=== PATIENT | female | born 1980 | race Caucasian/White ===

== ENCOUNTER 2016-05-25 13:25 | Emergency (ER) | payer SELFPAY ==
[~2016-05-25] VITALS: Ht 167.6 cm; Wt 97.0 kg
[~2016-05-25 13:25] MED LIST: IBUP800T23 PO; TRAM50 PO
[2016-05-25 13:38] VITALS: BP 135/81; PULSE 88; RESP 16; TEMP 97.9; O2SAT 100
[2016-05-25] MEDS ORDERED: AZIT250T3 PO (14:04)
[2016-05-25] MEDS ORDERED: PRED20 PO (14:04)
[2016-05-25] MEDS ORDERED: ALBUAER3 INH (14:04)
--- NOTE | 2016-05-25 14:04 | PD ---
HPI Chief Complaint: Cold / Flu Symptoms Time Seen by Provider: 14:04 Travel History International Travel<30 days: No Contact w/Intl Traveler<30days: No Traveled to known affect area: No History of Present Illness HPI Patient is a 35-year-old female history of asthma presenting with cough for 1 week. She's had wheezing and dyspnea as well. Brown sputum production. Symptoms are worse over the last 2 days. She has chest tightness and pain with coughing. Denies resting chest pain or pain with deep breathing. Dyspnea is minimal. She denies any ENT/URI symptoms. She has used a friend's nebulizer which has seemed to help. She denies fever. She is a current tobacco smoker. Denies current . [facility] Past Medical History Diminished Hearing: No Tetanus Vaccination: Unknown ?: Not LMP: 05/17/2016 Social History Alcohol Use: Yes (SOCIAL) Tobacco Use: Yes (SOCIAL) Substance Use: No Allergies-Medications (Allergen,Severity, Reaction): Coded Allergies: No Known Allergies (Unverified , 05/25/16) Reported Meds & Prescriptions Reported Meds & Active Scripts Active Azithromycin 250 Mg Tab 250 Mg PO DIRECTED Take 2 tabs (500 mg) on day 1 then 1 tab daily x 4 days. Proair Hfa 8.5 GM Inh (Albuterol Sulfate) 90 Mcg/Act Aer 2 Puff INH Q4-6H PRN 108 mcg/actuation Prednisone 20 Mg Tab 20 Mg PO DAILY 5 Days Review of Systems Except as stated in HPI: all other systems reviewed are Neg Physical Exam Narrative GENERAL: Well-developed and well-nourished adult female in no acute distress. SKIN: Warm and dry. Good turgor without tenting. HEAD: Normocephalic and atraumatic. EYES: PERRL bilaterally, 5mm. EOMI bilaterally. No injection or icterus present. No proptosis. Lids without edema or erythema. ENT: Bilateral ear canals are non-edematous/non-erythematous without otorrhea. Bilateral TMs have intact landmarks and without distortion, perforation, air- fluid level or erythema. Nasal mucosa pink and moist without discharge, septum intact and midline. Buccal mucosa pink and moist. Oropharynx free of erythema, tonsillar hypertrophy, masses, swelling, asymmetry and exudates. Uvula midline and airway patent. NECK: Supple, no meningeal signs. Trachea midline, no JVD. No cervical or facial lymphadenopathy. CARDIOVASCULAR: Regular rate and rhythm without murmurs, rubs, clicks or gallops. Radial and posterior tibial pulses 2+ bilaterally. No pedal edema. RESPIRATORY: Clear to auscultation bilaterally with symmetrical rise and fall, no distress or use of accessory muscles. GASTROINTESTINAL: Non-tender, non-distended. Normal bowel sounds all 4 quadrants. No masses or organomegaly present. MUSCULOSKELETAL: No gait disturbances. Patient freely moving all four extremities spontaneously. Extremities without clubbing, cyanosis, or edema. No obvious deformities. NEUROLOGIC: CN II-XII grossly intact. Awake and alert. Motor grossly within normal limits. Normal speech. PSYCHIATRIC: Appropriate mood and affect; insight and judgment normal. Data Data Last Documented VS Vital Signs Date Time Temp Pulse Resp B/P Pulse Ox O2 Delivery O2 Flow Rate FiO2 05/25/16 13:38 97.9 88 16 135/81 100 MDM Medical Decision Making Medical Screen Exam Complete: Yes Emergency Medical Condition: Yes Differential Diagnosis Acute bronchitis versus asthma exacerbation versus pneumonia Narrative Course Patient's 35-year-old female history and physical suggestive of bronchitis with asthma exacerbation. She is afebrile and nontoxic-appearing. work of breathing. Lungs clear to auscultation however she did a home albuterol treatment just prior to coming in. As symptoms have been present over 1 week and her worsening we'll prescribe azithromycin. Patient was given pro-air inhaler and recommend she stop using her friend's nebulizer machine. Also given prescription for prednisone. Recommend stop smoking.See discharge paperwork for further instructions. The plan was discussed with the patient who acknowledged their understanding and agreement. Reinforced the follow-up with primary care is critically important. Patient instructed on emergent conditions that should prompt return to ED. Diagnosis Primary Impression: Acute bronchitis Qualified Code: J20.9 - Acute bronchitis, unspecified organism Patient Instructions: Acute Bronchitis (ED), Cigarette Smoking and Your Health (GEN), General Instructions Departure Forms: Tests/Procedures, Work Release Enter return to work date: May 27, 2016 Additional Instructions: Take medication as prescribed OTC Mucinex, cough suppressants, and decongestants as needed OTC Tylenol or Ibuprofen for fever and discomfort Drink lots of fluid to help clear mucous/drainage and stay hydrated Recommend stop smoking as this will contribute to poor lung and heart health Follow up with PCP in 2 days Return to the ED for any acute worsening of symptoms Med/Other Pt SpecificInfo: Prescription(s) given Scripts Azithromycin 250 Mg [id number] Mg PO DIRECTED #6 TAB Take 2 tabs (500 mg) on day 1 then 1 tab daily x 4 days. Prov:Karen Peter MD 05/25/16 Albuterol 8.5 GM Inh (Proair Hfa 8.5 GM Inh)90 Mcg/Act Aer2 Puff INH Q4-6H PRN ( SHORTNESS OF BREATH) #1 INHALER 108 mcg/actuation Prov:Karen Peter MD 05/25/16 Prednisone 20 Mg Tab20 Mg PO DAILY 5 Days Prov:Karen Peter MD 05/25/16 Disposition: 01 DISCHARGE HOME Condition: Stable Diego Anand III May 25, 2016 14:04
== END 2016-05-25 14:43 | disposition home or self-care (01) ==
LOC: PHEFT 13:25
DX: J20.9 Acute bronchitis, unspecified (principal); R09.3 Abnormal sputum; Z72.0 Tobacco use
CPT/HCPCS: 99283

== ENCOUNTER 2017-09-03 12:47 | Inpatient (IN) | payer OTHER ==
[~2017-09-03] VITALS: Ht 167.6 cm; Wt 99.7 kg
[~2017-09-03 12:47] MED LIST changes: +ALBUAER3 INH; +AZIT250T3 PO; -IBUP800T23 PO; +PRED20 PO; -TRAM50 PO
[2017-09-03 12:55] VITALS: BP 141/75; PULSE 67; RESP 16; TEMP 97.3; O2SAT 100
--- NOTE | 2017-09-03 13:10 | PD ---
HPI Chief Complaint: GI Complaint Time Seen by Provider: 13:00 Travel History International Travel<30 days: No Contact w/Intl Traveler<30days: No Traveled to known affect area: No History of Present Illness HPI This 36-year-old female says he been sick for the past 3 weeks. Since she has been nauseated at times she has been coughing a lot. She does have a history of asthma. She says since last night she has been unable to hold any food down. She says she is not . She denies any alcohol or history of liver disease. PFS Past Medical History Asthma: Yes Diminished Hearing: No Tetanus Vaccination: < 5 Years Influenza Vaccination: Yes ?: Not LMP: 08/23/17 Past Surgical History Surgical History: No Previous Surgery Social History Alcohol Use: Yes (Occ.) Tobacco Use: No Substance Use: No Allergies-Medications (Allergen,Severity, Reaction): Coded Allergies: No Known Allergies (Unverified Allergy, Unknown, 09/03/17) Reported Meds & Prescriptions Reported Meds & Active Scripts Active Review of Systems General / Constitutional: No: Fever, Chills Eyes: No: Diploplia, Blurred Vision HENT: No: Headaches, Vertigo Cardiovascular: Positive: Chest Pain or Discomfort Respiratory: No: Cough, Shortness of Breath Gastrointestinal: Positive: Nausea, Vomiting, Abdominal Pain Genitourinary: No: Urgency, Frequency Musculoskeletal: No: Myalgias, Arthralgias Skin: No Rash, No Dryness Neurologic: No: Dizziness Endocrine: No: Heat Intolerance, Cold Intolerance Hematologic/Lymphatic: No: Easy Bruising Physical Exam Narrative GENERAL: Well-developed female SKIN: Focused skin assessment warm/dry. HEAD: Atraumatic. Normocephalic. EYES: Pupils equal and round. No scleral icterus. No injection or drainage. ENT: No nasal bleeding or discharge. Mucous membranes pink and moist. NECK: Trachea midline. No JVD. CARDIOVASCULAR: Regular rate and rhythm. No murmur appreciated. RESPIRATORY: No accessory muscle use. Clear to auscultation. Breath sounds equal bilaterally. GASTROINTESTINAL: Abdomen soft, there is epigastric tenderness and right upper quadrant tenderness, nondistended. Hepatic and splenic margins not palpable. MUSCULOSKELETAL: No obvious deformities. No clubbing. No cyanosis. No edema. NEUROLOGICAL: Awake and alert. No obvious cranial nerve deficits. Motor grossly within normal limits. Normal speech. PSYCHIATRIC: Appropriate mood and affect; insight and judgment normal. Data Data Last Documented VS Vital Signs Date Time Temp Pulse Resp B/P (MAP) Pulse Ox O2 Delivery O2 Flow Rate FiO2 09/03/17 13:00 18 09/03/17 12:55 97.3 67 141/75 (97) 100 Orders Orders Complete Blood Count With Diff (09/03/17 13:07) Comprehensive Metabolic Panel (09/03/17 13:07) Lipase (09/03/17 13:07) Urinalysis - C+S If Indicated (09/03/17 13:07) Chest, Single Ap (09/03/17 13:07) Sodium Chlor 0.9% 1000 Ml Inj (Ns 1000 M (09/03/17 13:15) Ed Urine Pregnancytest Poc (09/03/17 13:07) Sodium Chlor 0.9% 1000 Ml Inj (Ns 1000 M (09/03/17 13:15) Ondansetron Inj (Zofran Inj) (09/03/17 13:15) Urine Culture (09/03/17 13:10) Morphine Inj (Morphine Inj) (09/03/17 14:00) Ct Abd/Pel W Iv Contrast(Rout) (09/03/17 ) Hydromorphone Pf Inj (Dilaudid Pf Inj) (09/03/17 14:15) Kcl Bolus Inj (09/03/17 14:15) Hydromorphone Pf Inj (Dilaudid Pf Inj) (09/03/17 14:15) Labs Laboratory Tests Test 09/03/17 13:10 09/03/17 13:20 Urine Collection Type CLEAN CATCH Urine Color YASIR Urine Turbidity SL CLOUDY Urine pH 6.5 Urine Specific [place] 1.025 Urine Protein 100 mg/dL Urine Glucose (UA) 100 mg/dL Urine Ketones NEG mg/dL Urine Occult Blood LARGE Urine Nitrite POS Urine Bilirubin MOD Urine Leukocyte Esterase SMALL Urine RBC 15-19 /hpf Urine WBC 9-14 /hpf Urine Squamous Epithelial Cells > 8 /hpf Urine Amorphous Sediment MOD Urine Bacteria FEW /hpf Microscopic Urinalysis Comment CULTURE INDICATED Urine Collection Time 1310 White Blood Count 12.2 TH/MM3 Red Blood Count 3.97 MIL/MM3 Hemoglobin 11.4 GM/DL Hematocrit 34.7 % Mean Corpuscular Volume 87.2 FL Mean Corpuscular Hemoglobin 28.8 PG Mean Corpuscular Hemoglobin Concent 33.0 % Red Cell Distribution Width 14.2 % Platelet Count 426 TH/MM3 Mean Platelet Volume 8.5 FL Neutrophils (%) (Auto) 83.1 % Lymphocytes (%) (Auto) 9.5 % Monocytes (%) (Auto) 4.4 % Eosinophils (%) (Auto) 0.1 % Basophils (%) (Auto) 2.9 % Neutrophils # (Auto) 10.1 TH/MM3 Lymphocytes # (Auto) 1.2 TH/MM3 Monocytes # (Auto) 0.5 TH/MM3 Eosinophils # (Auto) 0.0 TH/MM3 Basophils # (Auto) 0.4 TH/MM3 CBC Comment DIFF FINAL Differential Comment Blood Urea Nitrogen 10 MG/DL Creatinine 0.87 MG/DL Random Glucose 192 MG/DL Total Protein 8.4 GM/DL Albumin 3.1 GM/DL Calcium Level 9.1 MG/DL Alkaline Phosphatase 176 U/L Aspartate Amino Transf (AST/SGOT) 254 U/L Alanine Aminotransferase (ALT/SGPT) 155 U/L Total Bilirubin 2.7 MG/DL Sodium Level 140 MEQ/L Potassium Level 3.1 MEQ/L Chloride Level 107 MEQ/L Carbon Dioxide Level 25.9 MEQ/L Anion Gap 7 MEQ/L Estimat Glomerular Filtration Rate 75 ML/MIN Lipase 19524 U/L [facility] Medical Decision Making Medical Screen Exam Complete: Yes Emergency Medical Condition: Yes Medical Record Reviewed: Yes Differential Diagnosis Differential includes gastritis, gastroenteritis, pancreatitis, biliary disease Narrative Course Hemoglobin is 11.4 with a white count of 12,000. Bilirubin is 2.7 with AST of 254 and ALT of 155. Lipase is 10,000. Patient denies any alcohol. This may be gallstone pancreatitis Scripts No Active Prescriptions or Reported Meds Luis Jurado MD September 03, 2017 13:10
[2017-09-03] MEDS ORDERED: ONDANSETRON HCL 4 MG/2 ML VIAL IV PUSH ONE (13:15)
[2017-09-03] MEDS ORDERED: SODIUM CHLOR 0.9% 1000 ML INJ 1,000 ML IV ONE ×2 (13:15)
[2017-09-03 13:41] LABS: BILIRUBIN, URINE MOD (NEG); BLOOD, URINE LARGE (NEG); GLUCOSE,URINE 100 mg/dL (NEG); KETONE, URINE NEG (NEG); NITRITE,URINE POS (NEG); PH, URINE 6.5 (5.0-8.5); URINE LEUKOCYTE ESTERASE SMALL (NEG)
[2017-09-03 13:42] LABS: AUTOMATED NEUTROPHIL # 10.1 TH/MM3 (1.8-7.7); BASOPHIL # 0.4 TH/MM3 (0-0.2); BASOPHIL % 2.9 % (0.0-2.0); EOSINOPHIL % 0.1 % (0.0-4.0); HEMATOCRIT 34.7 % (35.0-46.0); HEMOGLOBIN 11.4 GM/DL (11.6-15.3); LYMPH % 9.5 % (9.0-44.0); LYMPHOCYTE # 1.2 TH/MM3 (1.0-4.8); MEAN CELL VOLUME 87.2 FL (80.0-100.0); MEAN CORPUSCULAR HEMOGLOBIN 28.8 PG (27.0-34.0); MEAN PLATELET VOLUME 8.5 FL (7.0-11.0); MONO % 4.4 % (0.0-8.0); MONOCYTE # 0.5 TH/MM3 (0-0.9); NEUT % 83.1 % (16.0-70.0); PLATELET COUNT 426 TH/MM3 (150-450); RED BLOOD COUNT 3.97 MIL/MM3 (4.00-5.30); RED CELL DISTRIBUTION WIDTH 14.2 % (11.6-17.2); WHITE BLOOD COUNT 12.2 TH/MM3 (4.0-11.0)
[2017-09-03 13:46] LABS: URINE COLOR AMBER (YELLW/STRAW)
[2017-09-03 13:48] LABS: CHLORIDE 107 MEQ/L (98-107); SODIUM (NA) 140 MEQ/L (136-145)
--- NOTE | 2017-09-03 13:50 | RADRPT ---
EXAM DATE/TIME: 09/03/2017 13:12 [facility] COMPARISON: No previous studies available for comparison. INDICATIONS : Nausea and vomiting. Short of breath MEDICAL HISTORY : Asthma SURGICAL HISTORY : None. ENCOUNTER: Initial ACUITY: 3 weeks PAIN SCORE: 1/10 LOCATION: Bilateral chest FINDINGS: A single view of the chest demonstrates cardiomegaly. Minimal basilar atelectasis. No effusion or pne umothorax. No focal consolidation. CONCLUSION: 1. Minimal basilar atelectasis. No effusion or pneumothorax. Randy Kendrick MD on September 03, 2017 at 13:46 Board Certified Radiologist. This report was verified electronically.
[2017-09-03 13:52] LABS: ALBUMIN 3.1 GM/DL (3.4-5.0); BICARBONATE 25.9 MEQ/L (21.0-32.0); CALCIUM 9.1 MG/DL (8.5-10.1); GLUCOSE,RANDOM 192 MG/DL (74-106)
[2017-09-03 13:53] LABS: BLOOD UREA NITROGEN 10 MG/DL (7-18)
[2017-09-03 13:54] LABS: BACTERIA, URINE FEW /hpf; RBC, URINE 15-19 /hpf (0-3)
[2017-09-03 13:55] LABS: ALT (GPT) 155 U/L (10-53); AST (GOT) 254 U/L (15-37)
[2017-09-03 13:55] LABS: AMORPHOUS SEDIMENT, URINE MOD; SQUAMOUS EPITHELIAL CELL URINE > 8 /hpf (0-5)
[2017-09-03 13:56] LABS: CREATININE 0.87 MG/DL (0.50-1.00); GLOMERULAR FILTRATION RATE 75 ML/MIN (>89)
[2017-09-03 13:57] LABS: TOTAL BILIRUBIN ADULT 2.7 MG/DL (0.2-1.0); TOTAL PROTEIN 8.4 GM/DL (6.4-8.2)
[2017-09-03 13:58] LABS: ALKALINE PHOSPHATASE 176 U/L (45-117)
[2017-09-03] MEDS ORDERED: MORPHINE SULFATE 8 MG/ML INJ IV PUSH ONE (14:00)
[2017-09-03] MEDS ORDERED: HYDROmorphone HCL PF 0.5 MG/0.5 ML SYRINGE IV PUSH ONE (14:15)
[2017-09-03] MEDS ORDERED: POTASSIUM CHLOR 20 MEQ PREMIX 100 ML IV ONE ×2 (14:15→17:00)
[2017-09-03] MEDS ORDERED: HYDROmorphone HCL PF 1 MG/ML VIAL IV PUSH ONE (14:15)
[2017-09-03] MEDS ORDERED: IOHEXOL 350 MG/ML 10 ML VIAL (for RAD DIAG) IVCONTRAST ONE (15:15)
[2017-09-03 15:25] VITALS: BP 140/65; PULSE 83; RESP 14; O2SAT 98
[2017-09-03] MEDS ORDERED: SODIUM CHLOR 0.9% 1000 ML INJ 1,000 ML IV SCH (15:29)
--- NOTE | 2017-09-03 15:31 | PD ---
Physical Exam Narrative GENERAL: SKIN: Warm and dry. HEAD: Atraumatic. Normocephalic. EYES: Pupils equal and round. No scleral icterus. No injection or drainage. ENT: No nasal bleeding or discharge. Mucous membranes pink and moist. NECK: Trachea midline. No JVD. CARDIOVASCULAR: Regular rate and rhythm. RESPIRATORY: No accessory muscle use. Clear to auscultation. Breath sounds equal bilaterally. GASTROINTESTINAL: Abdomen soft, diffusely tender, nondistended. MUSCULOSKELETAL: Extremities without clubbing, cyanosis, or edema. No obvious deformities. NEUROLOGICAL: Awake and alert. No obvious cranial nerve deficits. Motor grossly within normal limits. Five out of 5 muscle strength in the arms and legs. Normal speech. PSYCHIATRIC: Appropriate mood and affect; insight and judgment normal. Data Data Last Documented VS Vital Signs Date Time Temp Pulse Resp B/P (MAP) Pulse Ox O2 Delivery O2 Flow Rate FiO2 09/03/17 15:25 83 14 140/65 (90) 98 Room Air 09/03/17 12:55 97.3 Orders Orders Complete Blood Count With Diff (09/03/17 13:07) Comprehensive Metabolic Panel (09/03/17 13:07) Lipase (09/03/17 13:07) Urinalysis - C+S If Indicated (09/03/17 13:07) Chest, Single Ap (09/03/17 13:07) Sodium Chlor 0.9% 1000 Ml Inj (Ns 1000 M (09/03/17 13:15) Ed Urine Pregnancytest Poc (09/03/17 13:07) Sodium Chlor 0.9% 1000 Ml Inj (Ns 1000 M (09/03/17 13:15) Ondansetron Inj (Zofran Inj) (09/03/17 13:15) Urine Culture (09/03/17 13:10) Morphine Inj (Morphine Inj) (09/03/17 14:00) Ct Abd/Pel W Iv Contrast(Rout) (09/03/17 ) Hydromorphone Pf Inj (Dilaudid Pf Inj) (09/03/17 14:15) Potassium Chlor 20 Meq Premix (Kcl 20 Me (09/03/17 14:15) Hydromorphone Pf Inj (Dilaudid Pf Inj) (09/03/17 14:15) Iohexol 350 Inj (Omnipaque 350 Inj) (09/03/17 15:15) Levofloxacin 500 Mg Premix Inj (Levaquin (09/03/17 16:00) Sodium Chlor 0.9% 1000 Ml Inj (Ns 1000 M (09/03/17 15:29) Labs Laboratory Tests Test 09/03/17 13:10 09/03/17 13:20 Urine Collection Type CLEAN CATCH Urine Color YASIR Urine Turbidity SL CLOUDY Urine pH 6.5 Urine Specific [place] 1.025 Urine Protein 100 mg/dL Urine Glucose (UA) 100 mg/dL Urine Ketones NEG mg/dL Urine Occult Blood LARGE Urine Nitrite POS Urine Bilirubin MOD Urine Leukocyte Esterase SMALL Urine RBC 15-19 /hpf Urine WBC 9-14 /hpf Urine Squamous Epithelial Cells > 8 /hpf Urine Amorphous Sediment MOD Urine Bacteria FEW /hpf Microscopic Urinalysis Comment CULTURE INDICATED Urine Collection Time 1310 White Blood Count 12.2 TH/MM3 Red Blood Count 3.97 MIL/MM3 Hemoglobin 11.4 GM/DL Hematocrit 34.7 % Mean Corpuscular Volume 87.2 FL Mean Corpuscular Hemoglobin 28.8 PG Mean Corpuscular Hemoglobin Concent 33.0 % Red Cell Distribution Width 14.2 % Platelet Count 426 TH/MM3 Mean Platelet Volume 8.5 FL Neutrophils (%) (Auto) 83.1 % Lymphocytes (%) (Auto) 9.5 % Monocytes (%) (Auto) 4.4 % Eosinophils (%) (Auto) 0.1 % Basophils (%) (Auto) 2.9 % Neutrophils # (Auto) 10.1 TH/MM3 Lymphocytes # (Auto) 1.2 TH/MM3 Monocytes # (Auto) 0.5 TH/MM3 Eosinophils # (Auto) 0.0 TH/MM3 Basophils # (Auto) 0.4 TH/MM3 CBC Comment DIFF FINAL Differential Comment Blood Urea Nitrogen 10 MG/DL Creatinine 0.87 MG/DL Random Glucose 192 MG/DL Total Protein 8.4 GM/DL Albumin 3.1 GM/DL Calcium Level 9.1 MG/DL Alkaline Phosphatase 176 U/L Aspartate Amino Transf (AST/SGOT) 254 U/L Alanine Aminotransferase (ALT/SGPT) 155 U/L Total Bilirubin 2.7 MG/DL Sodium Level 140 MEQ/L Potassium Level 3.1 MEQ/L Chloride Level 107 MEQ/L Carbon Dioxide Level 25.9 MEQ/L Anion Gap 7 MEQ/L Estimat Glomerular Filtration Rate 75 ML/MIN Lipase 01798 U/L [facility] Medical Record Reviewed: Yes Supervised Visit with RADHA: No Narrative Course CBC shows 12,000 white count, 83% neutrophilia smiled, H&H of versus a very mild anemia by definition, but not functionally. No left shift and normal platelet count UA consistent with UTI Mild hypokalemia 3.1, elevated random glucose of 192, elevated total bilirubin 2.7 elevated AST of 254, elevated ALT of 155, elevated alk phos of 176, and elevated lipase of 10,081. This constellation of abnormal laboratory values are consistent with choledocholithiasis versus gallstone pancreatitis. The patient will be provided with IV fluids pain medication and antinausea medicine and antibiotics to cover for the UTI as well as the possibility of infected gallbladder. As of 1528 CT abdomen pelvis has not been read by radiologist At 1555 calls were made out to GI, as well as [facility] hospitalist and initiating transfer to [facility] for ERCP after reviewing CT abdomen and pelvis report which showed multiple gallstones with gallbladder wall thickening. Multiple common duct stones with moderate intra-and extrahepatic biliary ductal dilation consistent with gallstone parotitis there is also an incidental 6.6 cm right ovarian dermoid noted Diagnosis Primary Impression: UTI Additional Impressions: Obstructive pancreatitis Gallstone hepatitis Scripts No Active Prescriptions or Reported Meds Disposition: 70 TRANSFER TO OTHER FACILITY Condition: Stable Zhao Kelley MD September 03, 2017 15:31
--- NOTE | 2017-09-03 15:48 | RADRPT ---
EXAM DATE/TIME: 09/03/2017 15:06 [facility] COMPARISON: No previous studies available for comparison. INDICATIONS : Diffuse abdominal pain. Nausea and vomiting. IV CONTRAST: 80 cc Omnipaque 350 (iohexol) IV ORAL CONTRAST: No oral contrast ingested. RADIATION DOSE: 19.86 CTDIvol (mGy) MEDICAL HISTORY : Asthma. SURGICAL HISTORY : None. ENCOUNTER: Initial ACUITY: 2 weeks PAIN SCALE: 4/10 LOCATION: Abdomen. TECHNIQUE: Volumetric scanning of the abdomen and pelvis was performed. Using automated exposure control and ad justment of the mA and/or kV according to patient size, radiation dose was kept as low as reasonably achievable to obtain optimal diagnostic quality images. DICOM format image data is available electro nically for review and comparison. FINDINGS: LOWER LUNGS: The visualized lower lungs are clear. LIVER: There is mild intra-and extrahepatic biliary ductal dilatation. The gallbladder contains multiple salty cified stones. There is mild diffuse gallbladder wall thickening. There are multiple stones in the di stal common bile duct, all measuring on the order of 5-6 mm. SPLEEN: Normal size without lesion. PANCREAS: There is mild peripancreatic induration, particularly adjacent to the proximal body and pancreatic he ad may be changes of early pancreatitis. KIDNEYS: Normal in size and shape. There is no mass, stone or hydronephrosis. ADRENAL GLANDS: Within normal limits. VASCULAR: No evidence of aortic aneurysm. No major vessel occlusion or stenosis. Retro-aortic left renal vein. BOWEL/MESENTERY: Normal in caliber throughout. No abnormal wall thickening or focal inflammatory changes. ABDOMINAL WALL: Within normal limits. RETROPERITONEUM: There is no lymphadenopathy. BLADDER: No wall thickening or mass. REPRODUCTIVE: 6.6 cm dermoid involving the right ovary. INGUINAL: There is no lymphadenopathy or hernia. MUSCULOSKELETAL: Within normal limits for patient age. CONCLUSION: Multiple gallstones with mild gallbladder wall thickening. Multiple common duct stones with moderate intra-and extrahepatic biliary ductal dilatation. Gallstone pancreatitis. 6.6 cm right ovarian dermoid Diego Roth MD on September 03, 2017 at 15:31 Board Certified Radiologist. This report was verified electronically.
[2017-09-03] MEDS ORDERED: LEVOFLOXACIN 500 MG PREMIX INJ 100 ML IV ONE (16:00)
[2017-09-03] MEDS: SODIUM CHLOR 0.9% 1000 ML INJ 1,000 ML IV SCH (16:37)
[2017-09-03] MEDS ORDERED: NALOXONE HCL 0.4 MG/ML AMP IV PUSH PRN (16:45)
[2017-09-03] MEDS ORDERED: SODIUM CHLORIDE 0.9% FLUSH 10 ML FLUSH IV FLUSH PRN (16:45)
[2017-09-03] MEDS ORDERED: SENNOSIDES 8.6 MG TAB PO PRN (16:45)
[2017-09-03] MEDS ORDERED: BISACODYL 10 MG SUPP RECTAL PRN (16:45)
[2017-09-03] MEDS ORDERED: ACETAMINOPHEN/HYDROcodone 325 MG/5 MG TAB PO PRN (16:45)
[2017-09-03] MEDS ORDERED: MAGNESIUM HYDROXIDE SUSP 30 ML CUP PO PRN (16:45)
[2017-09-03] MEDS ORDERED: ACETAMINOPHEN 325 MG TAB PO PRN (16:45)
[2017-09-03] MEDS ORDERED: ONDANSETRON HCL 4 MG/2 ML VIAL IVP PRN (16:45)
[2017-09-03] MEDS ORDERED: LACTULOSE SYRUP 20 GM/30 ML CUP PO PRN (16:45)
[2017-09-03] MEDS: MORPHINE SULFATE 4 MG/ML INJ IV PUSH PRN (17:54)
[2017-09-03 17:55] VITALS: BP 110/63; PULSE 82; RESP 16; O2SAT 98
[2017-09-03] MEDS: ENOXAPARIN SODIUM 40 MG/0.4 ML SYRINGE SQ SCH (17:55)
[2017-09-03] MEDS ORDERED: HYDROmorphone HCL PF 2 MG/ML VIAL IV PUSH ONE (19:15)
[2017-09-03 19:57] VITALS: BP 115/62; PULSE 75; RESP 16; O2SAT 98
[2017-09-03] MEDS ORDERED: HYDROmorphone HCL PF 4 MG/ML VIAL IV PUSH ONE (20:00)
[2017-09-03] MEDS: DOCUSATE SODIUM 50 MG/SENNA 8.6 MG TAB PO SCH (21:00)
[2017-09-03] MEDS: SODIUM CHLORIDE 0.9% FLUSH 10 ML FLUSH IV FLUSH SCH (21:00)
--- NOTE | 2017-09-03 21:25 | HHI.HP ---
[facility] Primary [facility] Physician No Primary Care Physician Admission Diagnosis GALLSTONE PANCREATITIS, EARLY CHOLECYTITIS, UTI, Diagnoses: Chief Complaint: Abdominal pain Travel History International Travel<30 Days: No Contact w/Intl Traveler <30 Da: No Traveled to Known Affected Are: No History of Present Illness 36 y/o female with a history of asthma presented to the ED with complaints of abdominal pain. She states for the last 3 weeks she felt as if she was having the flu will with abdominal pain, nausea and vomiting. She states upon arrival her her pain was a 8/10 to her right upper quadrant with no radiation but with associated nausea. Upon examination patient is lying in bed pain free since receiving Dilaudid. She denies any chest pain or shortness of breath. Review of Systems Except as stated in HPI: all other systems reviewed are Neg Past Family Social History Past Medical History Asthma Past Surgical History Patient denies any surgical history Allergies: Coded Allergies: No Known Allergies (Unverified Allergy, Unknown, 09/03/17) Active Ordered Medications Current Medications Medications (Trade) Dose Ordered Sig/Delilah Route Start Time Stop Time Status Last Admin Sodium Chloride 1,000 ml @ 125 mls/hr Q8H IV 09/03/17 15:29 09/03/17 23:28 09/03/17 16:07 Sodium Chloride 1,000 ml @ 125 mls/hr Q8H IV 09/03/17 16:37 (NS Flush) 2 ml UNSCH PRN IV FLUSH 09/03/17 16:45 (NS Flush) 2 ml BID IV FLUSH 09/03/17 21:00 (Tylenol) 650 mg Q4H PRN PO 09/03/17 16:45 (Zofran Inj) 4 mg Q6H PRN IVP 09/03/17 16:45 09/03/17 17:54 (Lovenox Inj) 40 mg Q24H SQ 09/03/17 17:00 09/03/17 17:55 (Narcan Inj) 0.4 mg UNSCH PRN IV PUSH 09/03/17 16:45 (Kat-Colace) 1 tab BID PO 09/03/17 21:00 (Milk Of Magnesia Liq) 30 ml Q12H PRN PO 09/03/17 16:45 (Senokot) 17.2 mg Q12H PRN PO 09/03/17 16:45 (Dulcolax Supp) 10 mg DAILY PRN RECTAL 09/03/17 16:45 (Lactulose Liq) 30 ml DAILY PRN PO 09/03/17 16:45 ([place] 5-325 Mg) 1 tab Q4H PRN PO 09/03/17 16:45 (Morphine Inj) 2 mg Q4H PRN IV PUSH 09/03/17 17:00 09/03/17 17:54 Family History Patient denies any family history Social History Patient denies any tobacco, alcohol or illicit drug use Physical Exam Vital Signs Vital Signs Date Time Temp Pulse Resp B/P (MAP) Pulse Ox O2 Delivery O2 Flow Rate FiO2 09/03/17 20:35 84 16 97 09/03/17 19:57 75 16 115/62 (79) 98 Room Air 09/03/17 17:55 82 16 110/63 (79) 98 Room Air 09/03/17 15:25 83 14 140/65 (90) 98 Room Air 09/03/17 14:45 18 09/03/17 13:00 18 09/03/17 12:55 97.3 67 16 141/75 (97) 100 Physical Exam GENERAL: This is a well-nourished, well-developed patient, in no apparent distress. SKIN: No rashes, ecchymoses or lesions. Cool and dry. EYES: Pupils equal round and reactive. Extraocular motions intact. No scleral icterus. No injection or drainage. NECK: Trachea midline. No JVD or lymphadenopathy. Supple, nontender, no meningeal signs. CARDIOVASCULAR: Regular rate and rhythm without murmurs, gallops, or rubs. RESPIRATORY: Clear to auscultation. Breath sounds equal bilaterally. No wheezes , rales, or rhonchi. GASTROINTESTINAL: Abdomen soft, non-tender, nondistended. Hypoactive bowel sounds MUSCULOSKELETAL: Extremities without clubbing, cyanosis, or edema. No calf tenderness. NEUROLOGICAL: Awake and alert. Motor and sensory grossly within normal limits. Normal speech. Laboratory Laboratory Tests Test 09/03/17 13:10 09/03/17 13:20 Urine Collection Type CLEAN CATCH Urine Color YASIR Urine Turbidity SL CLOUDY Urine pH 6.5 Urine Specific [place] 1.025 Urine Protein 100 Urine Glucose (UA) 100 Urine Ketones NEG Urine Occult Blood LARGE Urine Nitrite POS Urine Bilirubin MOD Urine Urobilinogen GREATER/EQUAL 8.0 Urine Leukocyte Esterase SMALL Urine RBC 15-19 Urine WBC 9-14 Urine Squamous Epithelial Cells > 8 Urine Amorphous Sediment MOD Urine Bacteria FEW Microscopic Urinalysis Comment CULTURE INDICATED Urine Collection Time 1310 White Blood Count 12.2 Red Blood Count 3.97 Hemoglobin 11.4 Hematocrit 34.7 Mean Corpuscular Volume 87.2 Mean Corpuscular Hemoglobin 28.8 Mean Corpuscular Hemoglobin Concent 33.0 Red Cell Distribution Width 14.2 Platelet Count 426 Mean Platelet Volume 8.5 Neutrophils (%) (Auto) 83.1 Lymphocytes (%) (Auto) 9.5 Monocytes (%) (Auto) 4.4 Eosinophils (%) (Auto) 0.1 Basophils (%) (Auto) 2.9 Neutrophils # (Auto) 10.1 Lymphocytes # (Auto) 1.2 Monocytes # (Auto) 0.5 Eosinophils # (Auto) 0.0 Basophils # (Auto) 0.4 CBC Comment DIFF FINAL Differential Comment Blood Urea Nitrogen 10 Creatinine 0.87 Random Glucose 192 Total Protein 8.4 Albumin 3.1 Calcium Level 9.1 Alkaline Phosphatase 176 Aspartate Amino Transf (AST/SGOT) 254 Alanine Aminotransferase (ALT/SGPT) 155 Total Bilirubin 2.7 Sodium Level 140 Potassium Level 3.1 Chloride Level 107 Carbon Dioxide Level 25.9 Anion Gap 7 Estimat Glomerular Filtration Rate 75 Lipase 79235 Date/Time Source Procedure Growth Status 09/03/17 13:10 Urine Clean Catch Urine Culture Pending Received Result Diagram: 09/03/17 1320 09/03/17 1320 Imaging Last Impressions Chest X-Ray 09/03/17 1307 Signed Impressions: Service Date/Time: Sunday, September 03, 2017 13:12 - CONCLUSION: 1. Minimal basilar atelectasis. No effusion or pneumothorax. Randy Kendrick MD Abdomen/Pelvis CT 09/03/17 0000 Signed Impressions: Service Date/Time: Sunday, September 03, 2017 15:06 - CONCLUSION: Multiple gallstones with mild gallbladder wall thickening. Multiple common duct stones with moderate intra-and extrahepatic biliary ductal dilatation. Gallstone pancreatitis. 6.6 cm right ovarian dermoid MD Lew Da Silva VTE Risk Assessment Caprini VTE Risk Assessment: No/Low Risk (score <= 1) Caprini Risk Assessment Model Point Value = 1 Point Value = 2 Point Value = 3 Point Value = 5 Age 41-60 Minor surgery BMI > 25 kg/m2 Swollen legs Varicose veins or History of unexplained or recurrent spontaneous Oral contraceptives or hormone replacement Sepsis (< 1 month) Serious lung disease, including pneumonia (< 1 month) Abnormal pulmonary function Acute myocardial infarction Congestive heart failure (< 1 month) History of inflammatory bowel disease Medical patient at bed rest Age 61-74 Arthroscopic surgery Major open surgery (> 45 min) Laparoscopic surgery (> 45 min) Malignancy Confined to bed (> 72 hours) Immobilizing plaster cast Central venous access Age >= 75 History of VTE Family history of VTE Factor V Leiden Prothrombin [id number] Lupus anticoagulant Anticardiolipin antibodies Elevated serum homocysteine Heparin-induced thrombocytopenia Other congenital or acquired thrombophilia Stroke (< 1 month) Elective arthroplasty Hip, pelvis, or leg fracture Acute spinal cord injury (< 1 month) Prophylaxis Regimen Total Risk Factor Score Risk Level Prophylaxis Regimen 0-1 Low Early ambulation 2 Moderate Order ONE of the following: *Sequential Compression Device (SCD) *Heparin 5000 units SQ BID 3-4 Higher Order ONE of the following medications: *Heparin 5000 units SQ TID *Enoxaparin/Lovenox 40 mg SQ daily (WT < 150 kg, CrCl > 30 mL/min) *Enoxaparin/Lovenox 30 mg SQ daily (WT < 150 kg, CrCl > 10-29 mL/min) *Enoxaparin/Lovenox 30 mg SQ BID (WT < 150 kg, CrCl > 30 mL/min) AND/OR *Sequential Compression Device (SCD) 5 or more Highest Order ONE of the following medications: *Heparin 5000 units SQ TID (Preferred with Epidurals) *Enoxaparin/Lovenox 40 mg SQ daily (WT < 150 kg, CrCl > 30 mL/min) *Enoxaparin/Lovenox 30 mg SQ daily (WT < 150 kg, CrCl > 10-29 mL/min) *Enoxaparin/Lovenox 30 mg SQ BID (WT < 150 kg, CrCl > 30 mL/min) AND *Sequential Compression Device (SCD) Assessment and Plan Problem List: (1) Gallstone pancreatitis ICD Code: K85.10 - Biliary acute pancreatitis without necrosis or infection (2) UTI (urinary tract infection) ICD Code: N39.0 - Urinary tract infection, site not specified (3) Hypokalemia ICD Code: E87.6 - Hypokalemia Assessment and Plan 36-year-old female with a history of asthma presented to the ED with abdominal pain for the last 3 weeks. Gallstone pancreatitis with transaminitis Lipase 00526, AST 254, ALT 155 Abdominal/pelvis CT shows multiple gallstones with mild gallbladder wall thickening. Multiple common duct stones with moderate intra-and extrahepatic biliary ductal dilation gallstone pancreatitis -IVF for hydration -N.p.o. -Consult GI for recommendations -Morphine IV and [place] p.o. for pain management Hypokalemia, potassium 3.1 -Supplementation ordered, BMP in a.m., replace as needed UTI suspect E. coli, abnormal UA with positive nitrates and WBCs -Levaquin IV given in the ED, will continue until culture results -Urine culture pending DVT prophylaxis: SCDs Discussed Condition With Patient and RN Physician Certification 2 Midnight Certification Type: Admission for Inpatient Services Order for Inpatient Services The services are ordered in accordance with Medicare regulations or non- Medicare payer requirements, as applicable. In the case of services not specified as inpatient-only, they are appropriately provided as inpatient services in accordance with the 2-midnight benchmark. Estimated LOS (days): 2 days is the estimated time the patient will need to remain in the hospital, assuming treatment plan goals are met and no additional complications. Post-Hospital Plan: Home Problem Qualifiers (1) UTI (urinary tract infection): Qualified Codes: N30.01 - Acute cystitis with hematuria Jodi Bond September 03, 2017 21:25
[2017-09-03 21:32] VITALS: BP 130/69; PULSE 78; RESP 18; TEMP 97.9; O2SAT 94
[2017-09-04] VITALS (8 sets, daily range): BP systolic 121–137; BP diastolic 57–77; PULSE 78–96; RESP 16–20; TEMP 97.8–99.2; O2SAT 94–97
[2017-09-04] MEDS: SODIUM CHLOR 0.9% 1000 ML INJ 1,000 ML IV SCH ×4 (08:38→23:31)
[2017-09-04] MEDS: DOCUSATE SODIUM 50 MG/SENNA 8.6 MG TAB PO SCH ×2 (09:00→19:59)
[2017-09-04] MEDS: SODIUM CHLORIDE 0.9% FLUSH 10 ML FLUSH IV FLUSH SCH ×2 (09:00→19:59)
[2017-09-04 09:55] LABS: AUTOMATED NEUTROPHIL # 9.3 TH/MM3 (1.8-7.7); BASOPHIL # 0.1 TH/MM3 (0-0.2); BASOPHIL % 0.5 % (0.0-2.0); EOSINOPHIL % 0.3 % (0.0-4.0); HEMATOCRIT 33.7 % (35.0-46.0); HEMOGLOBIN 11.3 GM/DL (11.6-15.3); LYMPH % 11.6 % (9.0-44.0); LYMPHOCYTE # 1.3 TH/MM3 (1.0-4.8); MEAN CELL VOLUME 88.2 FL (80.0-100.0); MEAN CORPUSCULAR HEMOGLOBIN 29.6 PG (27.0-34.0); MEAN CORPUSCULAR HGB CONC 33.6 % (32.0-36.0); MEAN PLATELET VOLUME 8.3 FL (7.0-11.0); MONO % 6.2 % (0.0-8.0); MONOCYTE # 0.7 TH/MM3 (0-0.9); NEUT % 81.4 % (16.0-70.0); PLATELET COUNT 419 TH/MM3 (150-450); RED BLOOD COUNT 3.82 MIL/MM3 (4.00-5.30); RED CELL DISTRIBUTION WIDTH 14.7 % (11.6-17.2); WHITE BLOOD COUNT 11.5 TH/MM3 (4.0-11.0)
[2017-09-04 10:28] LABS: ALKALINE PHOSPHATASE 201 U/L (45-117); ALT (GPT) 189 U/L (10-53); AST (GOT) 216 U/L (15-37); BLOOD UREA NITROGEN 5 MG/DL (7-18); CALCIUM 8.1 MG/DL (8.5-10.1); CHLORIDE 107 MEQ/L (98-107); CREATININE 0.79 MG/DL (0.50-1.00); GLOMERULAR FILTRATION RATE 83 ML/MIN (>89); GLUCOSE,RANDOM 84 MG/DL (74-106); SODIUM (NA) 142 MEQ/L (136-145); TOTAL BILIRUBIN ADULT 2.9 MG/DL (0.2-1.0); TOTAL PROTEIN 7.7 GM/DL (6.4-8.2)
--- NOTE | 2017-09-04 11:12 | HHI.PR ---
Subjective Remarks minimal abdominal pain patient tearful and scared states had a good BM this am asking to have something to drink first episode of pancreatitis very rare alcohol use no chronic medical condition except for Hyperreeactive airway disease- Asthma- - in remission for a long time Objective Vitals Vital Signs Date Time Temp Pulse Resp B/P (MAP) Pulse Ox O2 Delivery O2 Flow Rate FiO2 09/04/17 10:09 94 21 09/04/17 08:00 98.1 96 16 128/64 (85) 97 09/04/17 04:00 97.8 85 18 122/64 (83) 97 09/04/17 00:00 97.8 78 20 137/77 (97) 97 09/03/17 21:32 97.9 78 18 130/69 (89) 94 09/03/17 20:35 84 16 97 09/03/17 19:57 75 16 115/62 (79) 98 Room Air 09/03/17 17:55 82 16 110/63 (79) 98 Room Air 09/03/17 15:25 83 14 140/65 (90) 98 Room Air 09/03/17 14:45 18 09/03/17 13:00 18 09/03/17 12:55 97.3 67 16 141/75 (97) 100 I/O 09/03/17 09/03/17 09/03/17 09/04/17 09/04/17 09/04/17 07:00 15:00 23:00 07:00 15:00 23:00 Intake Total 1000 ml 1200 ml 0 ml Balance 1000 ml 1200 ml 0 ml Intake Oral 0 ml IV Total 1000 ml 1200 ml # Voids 2 # Bowel Movements 0 Result Diagram: 09/04/17 0935 09/04/17 0935 Imaging Last Impressions Chest X-Ray 09/03/17 1307 Signed Impressions: Service Date/Time: Sunday, September 03, 2017 13:12 - CONCLUSION: 1. Minimal basilar atelectasis. No effusion or pneumothorax. Randy Kendrick MD Abdomen/Pelvis CT 09/03/17 0000 Signed Impressions: Service Date/Time: Sunday, September 03, 2017 15:06 - CONCLUSION: Multiple gallstones with mild gallbladder wall thickening. Multiple common duct stones with moderate intra-and extrahepatic biliary ductal dilatation. Gallstone pancreatitis. 6.6 cm right ovarian dermoid Diego Roth MD Objective Remarks awake and alert, oriented x 3 anciteric no nuchal rigidity lungs- no rales regular rhythm abdomen- soft, + bowel sounds, very mild tenderness on deep palpation fo epigastric area, no guarding extremities no edema neuro exam- non focal A/P Problem List: (1) Gallstone pancreatitis ICD Code: K85.10 - Biliary acute pancreatitis without necrosis or infection (2) UTI (urinary tract infection) ICD Code: N39.0 - Urinary tract infection, site not specified (3) Hypokalemia ICD Code: E87.6 - Hypokalemia Assessment and Plan 36-year-old female with a history of asthma presented to the ED with abdominal pain for the last 3 weeks. Gallstone pancreatitis with transaminitis Cholecystitis- GB wall thickening on CT with some biliary duct dilation Abdominal/pelvis CT shows multiple gallstones with mild gallbladder wall thickening. Multiple common duct stones with moderate intra-and extrahepatic biliary ductal dilation gallstone pancreatitis -IVF for hydration -N.p.o.. on antibiotics -GI consulted ff LFTs and lipase level. chekc INR - will get GS involved early prn pain meds Hypokalemia, potassium 3.1 replace IV volus x 3 change main IVF with KCL incorporation ff electrolytes UTI suspect E. coli, abnormal UA with positive nitrates and WBCs -Levaquin IV -Urine culture pending History of HAD- in remission Incentive spirometry DVT prophylaxis: SCDs- patient up and ambulating H2 ye for GI prophylaxis d/w patient Problem Qualifiers (1) UTI (urinary tract infection): Qualified Codes: N30.01 - Acute cystitis with hematuria Maia Rea MD September 04, 2017 11:12
[2017-09-04] MEDS: POTASSIUM CHLOR 10 MEQ PREMIX 100 ML IV SCH ×3 (13:42→19:24)
[2017-09-04] MEDS: POTASSIUM CHLORIDE INJ 30 MEQ in DEXT 5%-NACL 0.9% 1000 ML INJ 1,000 ML IV SCH ×2 (13:42→23:54)
[2017-09-04] MEDS: FAMOTIDINE 20 MG/2 ML VIAL IV PUSH SCH ×2 (13:42→23:55)
[2017-09-04] MEDS: ENOXAPARIN SODIUM 40 MG/0.4 ML SYRINGE SQ SCH (16:02)
[2017-09-04] MEDS: LEVOFLOXACIN 750 MG PREMIX INJ 150 ML IV SCH (17:41)
--- NOTE | 2017-09-04 19:47 | MB ---
cc: Pro Edwards MD, Michael A MD DATE: 09/04/2017 REASON FOR CONSULTATION: Gallstone pancreatitis. HISTORY OF PRESENT ILLNESS: The patient is a morbidly obese 36-year-old female who presented to the ED with complaints of abdominal pain for 3 weeks, abdominal pain, nausea and vomiting. The patient was admitted with workup and was found to have elevated lipase, grossly elevated liver function tests with ALT of 155, AST 254, alkaline phosphatase 176 and total bilirubin of 2.7. Lipase was 10,081 on admission but has decreased. The patient was also noted to have dilated intra and extrahepatic bile ducts with stones in the gallbladder and multiple stones in the common bile duct. I have been asked to see the patient for gallstone pancreatitis. The patient has no other surgical history. ALLERGIES: SHE HAS NO KNOWN ALLERGIES. PAST MEDICAL HISTORY: The only medical history includes a history of asthma that she has not had since as a child. She takes no medications for this. PHYSICAL EXAMINATION: GENERAL: Exam reveals a morbidly obese female in no acute distress. VITAL SIGNS: BP 123/68, pulse 93, respirations 18, temperature 99.2. HEENT: Sclerae are anicteric. Pupils are reactive. The patient has extremely poor dentition. CHEST: Clear to auscultation without wheezes. HEART: Reveals regular rate and rhythm. ABDOMEN: Soft with tenderness in the epigastrium without rebound or guarding. There are no hernias noted. Pulses are present. NEUROLOGIC: Nonfocal. LABORATORY DATA: Demonstrates WBCs of 11.5, hemoglobin is 11.3, platelets 419,000. Chemistries demonstrate today lipase 8466, alkaline phosphatase 201, ALT 189, AST 216, bilirubin 2.9. Potassium is decreased at 2.9. BUN and creatinine are normal at 5 and 0.79. IMAGING STUDIES: CT scan obtained yesterday demonstrates mild intra and extrahepatic biliary ductal dilatation with multiple stones in the gallbladder with mild diffuse gallbladder wall thickening and multiple stones in the distal common duct measuring 5-6 mm in size. ASSESSMENT: 1. Gallstone pancreatitis with choledocholithiasis. 2. Obesity. PLAN: Gastroenterology service has been consulted and the patient will require ERCP prior to any surgical procedure to clear the common duct. If they are unable to do this, I have explained to the patient that she would require an open procedure with common duct exploration and T-tube placement. They would much prefer the lesser invasive procedure. My associate, Dr. Barahona, will see the patient tomorrow and we will reassess on Wednesday after ERCP has been completed. I have discussed with the family and the patient that she is to remain n.p.o. for now to not cause further problems with her pancreatitis. I have also discussed with them that she will need to avoid all alcohol products for at least 3 months after surgery to not risk having a problem with pancreatic pseudocyst or other problems. She agrees to comply. Thank you, Dr. Rea, for asking us to see this individual. We will followup with you. MD SHANIQUE Major/ , 05:49 PM , 07:47 PM
[2017-09-04] MEDS: MORPHINE SULFATE 4 MG/ML INJ IV PUSH PRN (23:58)
[2017-09-05 00:26] VITALS: BP 117/74; PULSE 82; RESP 18; TEMP 98.2; O2SAT 98
[2017-09-05 07:32] LABS: INTERNATIONAL NORMALIZED RATIO 1.2 RATIO; PROTHROMBIN TIME - PATIENT 11.7 SEC (9.8-11.6)
[2017-09-05 07:48] LABS: ALBUMIN 2.7 GM/DL (3.4-5.0); ALT (GPT) 134 U/L (10-53); AST (GOT) 87 U/L (15-37); BLOOD UREA NITROGEN 4 MG/DL (7-18); CALCIUM 8.1 MG/DL (8.5-10.1); CHLORIDE 107 MEQ/L (98-107); CREATININE 0.61 MG/DL (0.50-1.00); GLUCOSE,RANDOM 114 MG/DL (74-106); SODIUM (NA) 140 MEQ/L (136-145)
[2017-09-05 08:00] VITALS: BP 116/57; PULSE 84; RESP 17; TEMP 98.1; O2SAT 98
[2017-09-05 08:03] LABS: ALKALINE PHOSPHATASE 169 U/L (45-117); TOTAL BILIRUBIN ADULT 0.8 MG/DL (0.2-1.0); TOTAL PROTEIN 7.2 GM/DL (6.4-8.2)
--- NOTE | 2017-09-05 08:25 | PD.CONS ---
HPI History of Present Illness This is a 36 year old yo F with no PMH who presented to the ER two days ago with complaints of nausea, vomiting, and abdominal pain for the past three weeks. Pt reports symptoms have been intermittent but increasing in frequency and intensity more recently. Pain is mostly localized to her RUQ area. Denies any noticeable aggravating or alleviating factors. Also complaining of some fever and chills which has also been intermittent. Denies ever seeing GI doctor in the past, no history of liver issues, pancreatitis. Has never had EGD or colonoscopy. States only drinks rarely like on holidays. Was smoking 3-4 cigarettes a day prior to admission but plans on quitting. (Kitty Gastelum) PFSH Past Medical History Asthma Past Surgical History Patient denies any surgical history (Kitty Gastelum) Coded Allergies: No Known Allergies (Unverified Allergy, Unknown, 09/03/17) Family History Patient denies any family history Social History Patient denies alcohol or illicit drug use Smoking 3-4 cigarettes a day prior to admission (Kitty Gastelum) Review of Systems Constitutional: COMPLAINS OF: Fever, Chills Gastrointestinal: COMPLAINS OF: Abdominal pain, Nausea, Vomiting, DENIES: Black stools, Bloody stools, Constipation, Diarrhea, Difficulty Swallowing, Odynophagia, Swelling of Abdomen, Heartburn, Hematemesis (Kitty Gastelum) GI Exam Vitals I&O Vital Signs Date Time Temp Pulse Resp B/P (MAP) Pulse Ox O2 Delivery O2 Flow Rate FiO2 09/05/17 00:26 98.2 82 18 117/74 (88) 98 09/05/17 00:09 16 09/04/17 20:00 98.0 88 18 121/69 (86) 97 09/04/17 17:40 97 21 09/04/17 16:00 99.0 89 17 122/57 (78) 97 09/04/17 12:00 99.2 93 18 123/68 (86) 97 09/04/17 10:09 94 21 I/O 09/04/17 09/04/17 09/04/17 09/05/17 09/05/17 09/05/17 07:00 15:00 23:00 07:00 15:00 23:00 Intake Total 0 ml 1449 ml 566 ml Output Total 600 ml Balance 0 ml 849 ml 566 ml Intake Oral 0 ml 0 ml IV Total 1449 ml 566 ml Output Urine Total 600 ml # Voids 2 3 # Bowel Movements 0 0 Imaging Last Impressions Chest X-Ray 09/03/17 1307 Signed Impressions: Service Date/Time: Sunday, September 03, 2017 13:12 - CONCLUSION: 1. Minimal basilar atelectasis. No effusion or pneumothorax. Randy Kendrick MD Abdomen/Pelvis CT 09/03/17 0000 Signed Impressions: Service Date/Time: Sunday, September 03, 2017 15:06 - CONCLUSION: Multiple gallstones with mild gallbladder wall thickening. Multiple common duct stones with moderate intra-and extrahepatic biliary ductal dilatation. Gallstone pancreatitis. 6.6 cm right ovarian dermoid Diego Roth MD Laboratory Test 09/04/17 09:35 09/05/17 05:53 White Blood Count 11.5 TH/MM3 Red Blood Count 3.82 MIL/MM3 Hemoglobin 11.3 GM/DL Hematocrit 33.7 % Mean Corpuscular Volume 88.2 FL Mean Corpuscular Hemoglobin 29.6 PG Mean Corpuscular Hemoglobin Concent 33.6 % Red Cell Distribution Width 14.7 % Platelet Count 419 TH/MM3 Mean Platelet Volume 8.3 FL Neutrophils (%) (Auto) 81.4 % Lymphocytes (%) (Auto) 11.6 % Monocytes (%) (Auto) 6.2 % Eosinophils (%) (Auto) 0.3 % Basophils (%) (Auto) 0.5 % Neutrophils # (Auto) 9.3 TH/MM3 Lymphocytes # (Auto) 1.3 TH/MM3 Monocytes # (Auto) 0.7 TH/MM3 Eosinophils # (Auto) 0.0 TH/MM3 Basophils # (Auto) 0.1 TH/MM3 CBC Comment DIFF FINAL Differential Comment Blood Urea Nitrogen 5 MG/DL 4 MG/DL Creatinine 0.79 MG/DL 0.61 MG/DL Random Glucose 84 MG/DL 114 MG/DL Total Protein 7.7 GM/DL 7.2 GM/DL Albumin 3.0 GM/DL 2.7 GM/DL Calcium Level 8.1 MG/DL 8.1 MG/DL Alkaline Phosphatase 201 U/L 169 U/L Aspartate Amino Transf (AST/SGOT) 216 U/L 87 U/L Alanine Aminotransferase (ALT/SGPT) 189 U/L 134 U/L Total Bilirubin 2.9 MG/DL 0.8 MG/DL Sodium Level 142 MEQ/L 140 MEQ/L Potassium Level 2.9 MEQ/L 3.4 MEQ/L Chloride Level 107 MEQ/L 107 MEQ/L Carbon Dioxide Level 27.0 MEQ/L 26.0 MEQ/L Anion Gap 8 MEQ/L 7 MEQ/L Estimat Glomerular Filtration Rate 83 ML/MIN Lipase 8466 U/L 4164 U/L Prothrombin Time 11.7 SEC Prothromb Time International Ratio 1.2 RATIO Date/Time Source Procedure Growth Status 09/03/17 13:10 Urine Clean Catch Urine Culture - Final 50-100,000 CFU/ML MIXED GRAM POSITIVE... Complete Physical Examination HEENT: Normocephalic; atraumatic CHEST: Even/unlabored CARDIAC: RRR ABDOMEN: Round, soft, RUQ tenderness, bowel sounds active EXTREMITIES: No clubbing, cyanosis, or edema. SKIN: Normal; no rash; no jaundice. CORNETIST: No focal deficits; alert and oriented times three. (Kitty Gastelum) Assessment and Plan Plan Assessment: - Choledocholithiasis Abdominal pain, nausea, vomiting, fevers intermittent x [address] abdomen and pelvis W IV contrast (09/03) --> Multiple gallstones with mild gallbladder wall thickening. Multiple common duct stones with moderate intra-and extrahepatic biliary ductal dilatation. Gallstone pancreatitis. AST-97 ALT-134 Alk phos-169 T bili-0.8 - Biliary pancreatitis- lipase 4164 Pt denies history of pancreatitis, ETOH - Leukocytosis - on Levaquin - Anemia, normocytic Plan: ERCP today Obtain consent Keep NPO Levaquin GS following Monitor labs (LFTs, lipase, WBCs) Further recommendations based on clinical course and results of above Pt has been seen and examined by myself and Dr. Pettit and this note is written on his behalf (Kitty Gastelum) Physician Comments Seen and examined with ELECTRIC RELAY TESTER< biliary pancreatitis . ERCP planned for today. NPO with ivf. Thank you (Daniela Pettit MD) Kitty Gastelum September 05, 2017 08:25 Daniela Pettit MD September 05, 2017 14:21
[2017-09-05] MEDS: SODIUM CHLOR 0.9% 1000 ML INJ 1,000 ML IV SCH (08:38)
[2017-09-05] MEDS: SODIUM CHLORIDE 0.9% FLUSH 10 ML FLUSH IV FLUSH SCH ×2 (09:00→21:00)
[2017-09-05] MEDS: DOCUSATE SODIUM 50 MG/SENNA 8.6 MG TAB PO SCH ×2 (09:00→21:00)
[2017-09-05] MEDS: POTASSIUM CHLORIDE INJ 30 MEQ in DEXT 5%-NACL 0.9% 1000 ML INJ 1,000 ML IV SCH ×2 (09:19→19:27)
--- NOTE | 2017-09-05 09:36 | HHI.PR ---
Subjective Remarks pain better, + Bowel movements no nausea or vomiting wanting to go home Objective Vitals Vital Signs Date Time Temp Pulse Resp B/P (MAP) Pulse Ox O2 Delivery O2 Flow Rate FiO2 09/05/17 00:26 98.2 82 18 117/74 (88) 98 09/05/17 00:09 16 09/04/17 20:00 98.0 88 18 121/69 (86) 97 09/04/17 17:40 97 21 09/04/17 16:00 99.0 89 17 122/57 (78) 97 09/04/17 12:00 99.2 93 18 123/68 (86) 97 09/04/17 10:09 94 21 I/O 09/04/17 09/04/17 09/04/17 09/05/17 09/05/17 09/05/17 07:00 15:00 23:00 07:00 15:00 23:00 Intake Total 0 ml 1449 ml 566 ml Output Total 600 ml Balance 0 ml 849 ml 566 ml Intake Oral 0 ml 0 ml IV Total 1449 ml 566 ml Output Urine Total 600 ml # Voids 2 3 # Bowel Movements 0 0 Result Diagram: 09/04/17 0935 09/05/17 0553 Imaging Last Impressions Chest X-Ray 09/03/17 1307 Signed Impressions: Service Date/Time: Sunday, September 03, 2017 13:12 - CONCLUSION: 1. Minimal basilar atelectasis. No effusion or pneumothorax. Randy Kendrick MD Abdomen/Pelvis CT 09/03/17 0000 Signed Impressions: Service Date/Time: Sunday, September 03, 2017 15:06 - CONCLUSION: Multiple gallstones with mild gallbladder wall thickening. Multiple common duct stones with moderate intra-and extrahepatic biliary ductal dilatation. Gallstone pancreatitis. 6.6 cm right ovarian dermoid Diego Roth MD Objective Remarks awake and alert, oriented x 3 anicteric no nuchal rigidity lungs- no rales regular rhythm abdomen- soft, + bowel sounds, very mild tenderness on deep palpation fo epigastric area, no guarding extremities no edema neuro exam- non focal A/P Problem List: (1) Gallstone pancreatitis ICD Code: K85.10 - Biliary acute pancreatitis without necrosis or infection Status: Acute (2) UTI (urinary tract infection) ICD Code: N39.0 - Urinary tract infection, site not specified (3) Hypokalemia ICD Code: E87.6 - Hypokalemia Status: Acute Assessment and Plan 36-year-old female with a history of asthma presented to the ED with abdominal pain for the last 3 weeks. Gallstone pancreatitis with transaminitis Cholecystitis- GB wall thickening on CT with some biliary duct dilation Abdominal/pelvis CT shows multiple gallstones with mild gallbladder wall thickening. Multiple common duct stones with moderate intra-and extrahepatic biliary ductal dilation gallstone pancreatitis -IVF for hydration -N.p.o.. on antibiotics -GI - ff- for ERCP -d/w Dr. barbosa - LFTs and lipase trending down GS ff peripherally prn pain meds Hypokalemia, potassium up to 3.4 from 2.9 to 3.4 give another bolus change main IVF with KCL incorporation ff electrolytes UTI suspect E. coli, abnormal UA with positive nitrates and WBCs -Levaquin IV -Urine culture pending History of HAD- in remission Incentive spirometry DVT prophylaxis: SCDs- patient up and ambulating H2 ye for GI prophylaxis d/w patient and friend at bedside Problem Qualifiers (1) UTI (urinary tract infection): Qualified Codes: N30.01 - Acute cystitis with hematuria Maia Rea MD September 05, 2017 09:35
[2017-09-05] MEDS: POTASSIUM CHLOR 10 MEQ PREMIX 100 ML IV SCH ×3 (10:32→10:48)
[2017-09-05] MEDS: FAMOTIDINE 20 MG/2 ML VIAL IV PUSH SCH (10:45)
[2017-09-05 12:00] VITALS: BP 119/66; PULSE 78; RESP 19; TEMP 98.7; O2SAT 98
[2017-09-05] MEDS ORDERED: ROCURONIUM INJ 50 MG/5 ML SYRINGE IV PUSH ONE (12:00)
[2017-09-05] MEDS ORDERED: PROPOFOL 200 MG/20 ML AMP IV ONE (12:00)
[2017-09-05] MEDS ORDERED: ONDANSETRON HCL 4 MG/2 ML VIAL IV PUSH ONE (12:00)
[2017-09-05] MEDS ORDERED: NEOSTIGMINE 5 MG/5 ML SYRINGE IV PUSH ONE (12:00)
[2017-09-05] MEDS ORDERED: GLYCOPYRROLATE 1 MG/5 ML SYRINGE IV PUSH ONE (12:00)
[2017-09-05] MEDS ORDERED: DEXAMETHASONE SOD PHOS 4 MG/ML VIAL IV ONE (12:00)
[2017-09-05] MEDS ORDERED: SUCCINYLCHOLINE CHLORIDE 100 MG/5 ML SYRINGE IV PUSH ONE (12:00)
[2017-09-05] MEDS ORDERED: LIDOCAINE HCL 1% PF 5 ML SYRINGE OTHER ONE (12:00)
[2017-09-05] MEDS ORDERED: IOHEXOL 350 MG/ML 50 ML BTL (for RAD DIAG) OTHER ONE (12:57)
--- NOTE | 2017-09-05 13:22 | HHI.PR ---
cc: Cezar Barahona MD Subjective Subjective Notes DAILY PROGRESS NOTE FOR SURGICAL ATTENDING, DR. CEZAR BARAHONA Patient getting ERCP Objective Vitals/I&O Vital Signs Date Time Temp Pulse Resp B/P (MAP) Pulse Ox O2 Delivery O2 Flow Rate FiO2 09/05/17 12:00 98.7 78 19 119/66 (83) 98 09/04/17 17:40 21 09/03/17 19:57 Room Air Labs Laboratory Tests Test 09/05/17 05:53 Prothrombin Time 11.7 Prothromb Time International Ratio 1.2 Blood Urea Nitrogen 4 Creatinine 0.61 Random Glucose 114 Total Protein 7.2 Albumin 2.7 Calcium Level 8.1 Alkaline Phosphatase 169 Aspartate Amino Transf (AST/SGOT) 87 Alanine Aminotransferase (ALT/SGPT) 134 Total Bilirubin 0.8 Sodium Level 140 Potassium Level 3.4 Chloride Level 107 Carbon Dioxide Level 26.0 Anion Gap 7 Lipase 4164 Date/Time Source Procedure Growth Status 09/03/17 13:10 Urine Clean Catch Urine Culture - Final 50-100,000 CFU/ML MIXED GRAM POSITIVE... Complete Radiology Last Impressions Chest X-Ray 09/03/17 1307 Signed Impressions: Service Date/Time: Sunday, September 03, 2017 13:12 - CONCLUSION: 1. Minimal basilar atelectasis. No effusion or pneumothorax. Cezar Kendrick MD Abdomen/Pelvis CT 09/03/17 0000 Signed Impressions: Service Date/Time: Sunday, September 03, 2017 15:06 - CONCLUSION: Multiple gallstones with mild gallbladder wall thickening. Multiple common duct stones with moderate intra-and extrahepatic biliary ductal dilatation. Gallstone pancreatitis. 6.6 cm right ovarian dermoid Diego Roth MD A/P Problem List: (1) Common bile duct stone ICD Codes: K80.50 - Calculus of bile duct without cholangitis or cholecystitis without obstruction Status: Acute (2) S/P ERCP ICD Codes: Z98.890 - Other specified postprocedural states Status: Acute (3) Hypokalemia ICD Codes: E87.6 - Hypokalemia Status: Acute (4) Gallstone pancreatitis ICD Codes: K85.10 - Biliary acute pancreatitis without necrosis or infection Status: Acute (5) UTI (urinary tract infection) ICD Codes: N39.0 - Urinary tract infection, site not specified Assessment and Plan Discussed with Dr. Edwards He is tentatively rescheduled to perform lap cholecystectomy Wednesday Depending on the results of the ERCP and her clinical status Discussed with family at the bedside Attending Statement NOTE FOR SURGICAL ATTENDING, DR. CEZAR BARAHONA I attest that I had a [id number] encounter with the patient on the same day, and personally performed and documented my assessment and findings in the medical record. The following services were provided during this hospital visit: Chart data review, vital sign assessments/reviewing monitor data Review of consultations notes if present. Medication orders/review and/or management Ordering and/or reviewing lab tests Ordering and/or interpreting/reviewing x-rays and/or diagnostic studies Care of the patient and discussion of the patient with the care team Documentation time To help prompt me to consider important information that might be impacting today's encounter and assessment, Information from prior notes written by myself or my colleagues may have been "brought forward/copy and pasted" into today's note. Problem Qualifiers (1) UTI (urinary tract infection): Qualified Codes: N30.01 - Acute cystitis with hematuria Cezar Barahona MD September 05, 2017 13:22
--- NOTE | 2017-09-05 13:50 | GIPROC ---
[facility] [address] [facility]. [facility], [address] ERCP PROCEDURE REPORT EXAM DATE: 09/05/2017 PATIENT NAME: Jackie Garcia MR #: [id number] BIRTHDATE: 1980 ATTENDING: Daniela Pettit MD ORDER #: [id number] LEAD WAREHOUSE ASSOCIATE: Emery Mckeon and Shanti Byrd STATUS: inpatient INDICATIONS: The patient is a 36 yr old female here for an ERCP due to established bile duct stone(s) and abdominal pain of suspected biliary origin PROCEDURE PERFORMED: ERCP, Level 1 MEDICATIONS: None and Per Anesthesia. CONSENT: The patient understands the risks and benefits of the procedure and understands that these risks include, but are not limited to: sedation, allergic reaction, infection, perforation and/or bleeding. Alternative means of evaluation and treatment include, among others: physical exam, x-rays, and/or surgical intervention. The patient elects to proceed with this endoscopic procedure. medical equipment was checked for proper function. Hand hygiene and appropriate measures for infection prevention was taken. After the risks, benefits and alternatives of the procedure were thoroughly explained, Informed was verified, confirmed and timeout was successfully executed by the treatment team. With the patient in left semi-prone position, medications were administered intravenously.The Pentax [id number] was passed from the mouth into the esophagus and further advanced from the esophagus into the stomach. From stomach scope was directed to the second portion of the duodenum. Major papilla was aligned with the duodenoscope. The scope position was confirmed fluoroscopically. Rest of the findings/therapeutics are given below. The scope was then completely withdrawn from the patient and the procedure completed. The pulse, BP, and O2 saturation were monitored and documented by the physician and the nursing staff throughout the entire procedure. The patient was cared for as planned according to standard protocol. The patient was then discharged to recovery in stable condition and with appropriate post procedure care. The ampulla was located the second portion of the duodenum. Severe inflammation in the kaylah ampullary area due to pancreatitis. Pancreatic duct cannulated and opacified. Pancreatic dust normal. Unable to cannulate the CBD with the wire.CBD opacification reveals three filling defects vs. Air bubbles. ADVERSE EVENT: There were no complications. IMPRESSIONS: Unsuccessful cholangiogram RECOMMENDATIONS: 1. Liver enzymes 2. PTC REPEAT EXAM: As needed Daniela Pettit MD eSigned: Daniela Pettit MD 09/05/2017 1:50 PM cc:
[2017-09-05] MEDS ORDERED: DO NOT ADM ANY ANTICOAGULANT DRUGS PRN (14:06)
[2017-09-05] MEDS ORDERED: MIDAZOLAM HCL 2 MG/2 ML VIAL ONE (14:17)
--- NOTE | 2017-09-05 14:21 | RADRPT ---
EXAM DATE/TIME: 09/05/2017 12:23 [facility] COMPARISON: CT ABDOMEN & PELVIS W CONTRAST, September 03, 2017, 15:06. INDICATIONS : ERCP FLUORO TIME: 3 minutes IMAGE COUNT: 2 CONTRAST: Instilled by Ordering Physician MEDICAL HISTORY : Asthma. SURGICAL HISTORY : None. ENCOUNTER: Initial ACUITY: 1 day PAIN SCORE: Non-responsive. LOCATION: Abdomen. FINDINGS: An ERCP was performed by the ordering physician. The images demonstrate no filling of the common duct. MRCP would be of benefit. CONCLUSION: ERCP as above. Drake Claros MD FACR on September 05, 2017 at 14:18 Board Certified Radiologist. This report was verified electronically.
[2017-09-05] MEDS ORDERED: RESP: ALBUTEROL 2.5 MG/IPRATROPIUM 0.5 MG NEB (SCH) NEB ONE (15:00)
[2017-09-05] MEDS: LEVOFLOXACIN 750 MG PREMIX INJ 150 ML IV SCH (15:52)
[2017-09-05] MEDS: ENOXAPARIN SODIUM 40 MG/0.4 ML SYRINGE SQ SCH (15:52)
[2017-09-05 16:00] VITALS: BP 112/66; PULSE 88; RESP 17; TEMP 97.6; O2SAT 99
[2017-09-05 20:00] VITALS: BP 116/63; PULSE 78; RESP 20; TEMP 99.4; O2SAT 98
[2017-09-05 20:51] VITALS: O2SAT 98
[2017-09-06] MEDS: FAMOTIDINE 20 MG/2 ML VIAL IV PUSH SCH (00:03)
[2017-09-06 00:25] VITALS: BP 116/75; PULSE 77; RESP 20; TEMP 99; O2SAT 98
[2017-09-06] MEDS ORDERED: SODIUM CHLORID 0.9% 500 ML IV PRN (02:45)
[2017-09-06] MEDS ORDERED: LACTATED RINGER'S 1000 ML IV PRN (02:45)
[2017-09-06] MEDS ORDERED: POVIDONE IODINE 5% (ANTISEPSIS KIT) 4 APPLICATIONS EACH NARE PRN (02:45)
[2017-09-06] MEDS ORDERED: INSULIN HUMAN REGULAR 1,000 UNITS/10 ML VIAL SQ PRN (02:45)
[2017-09-06] MEDS ORDERED: CHLORHEXIDINE GLUCONATE 2 % 1 PACK (2 CLOTHS) TOPICAL PRN (02:45)
[2017-09-06] MEDS ORDERED: METOPROLOL TARTRATE 25 MG TAB PO PRN (02:45)
[2017-09-06 07:28] LABS: ALBUMIN 2.7 GM/DL (3.4-5.0); ALT (GPT) 109 U/L (10-53); AST (GOT) 42 U/L (15-37); BICARBONATE 23.6 MEQ/L (21.0-32.0); BLOOD UREA NITROGEN 7 MG/DL (7-18); CALCIUM 8.6 MG/DL (8.5-10.1); CHLORIDE 111 MEQ/L (98-107); CREATININE 0.68 MG/DL (0.50-1.00); GLOMERULAR FILTRATION RATE 99 ML/MIN (>89); GLUCOSE,RANDOM 127 MG/DL (74-106); SODIUM (NA) 143 MEQ/L (136-145)
[2017-09-06 07:30] LABS: ALKALINE PHOSPHATASE 146 U/L (45-117); TOTAL BILIRUBIN ADULT 0.5 MG/DL (0.2-1.0); TOTAL PROTEIN 7.7 GM/DL (6.4-8.2)
[2017-09-06 08:00] VITALS: BP 118/58; PULSE 83; RESP 16; TEMP 97.4; O2SAT 97
--- NOTE | 2017-09-06 09:01 | HHI.PR ---
Subjective Remarks pain better no nausea or vomiting afebrile Objective Vitals Vital Signs Date Time Temp Pulse Resp B/P (MAP) Pulse Ox O2 Delivery O2 Flow Rate FiO2 09/06/17 08:00 97.4 83 16 118/58 (78) 97 09/06/17 00:25 99.0 77 20 116/75 (89) 98 09/05/17 20:51 98 21 09/05/17 20:00 99.4 78 20 116/63 (80) 98 09/05/17 16:00 97.6 88 17 112/66 (81) 99 09/05/17 14:30 97.6 82 16 119/65 (83) 96 Room Air 09/05/17 14:15 88 16 123/62 (82) 95 Room Air 09/05/17 14:05 97.9 97 20 128/58 (81) 100 Nasal Cannula 3 09/05/17 12:00 98.7 78 19 119/66 (83) 98 I/O 09/05/17 09/05/17 09/05/17 09/06/17 09/06/17 09/06/17 07:00 15:00 23:00 07:00 15:00 23:00 Intake Total 566 ml 1100 ml 625 ml Output Total 700 ml Balance 566 ml 1100 ml -75 ml Intake Oral 375 ml IV Total 566 ml 100 ml 250 ml Other 1000 ml Output Urine Total 700 ml # Voids 3 1 4 # Bowel Movements 1 0 Result Diagram: 09/04/17 0935 09/06/17 0557 Imaging Last Impressions GI Procedure 09/05/17 0000 Signed Impressions: Service Date/Time: Tuesday, September 05, 2017 12:23 - CONCLUSION: ERCP as above. Drake Claros MD FACR Chest X-Ray 09/03/17 1307 Signed Impressions: Service Date/Time: Sunday, September 03, 2017 13:12 - CONCLUSION: 1. Minimal basilar atelectasis. No effusion or pneumothorax. Randy Kendrick MD Abdomen/Pelvis CT 09/03/17 0000 Signed Impressions: Service Date/Time: Sunday, September 03, 2017 15:06 - CONCLUSION: Multiple gallstones with mild gallbladder wall thickening. Multiple common duct stones with moderate intra-and extrahepatic biliary ductal dilatation. Gallstone pancreatitis. 6.6 cm right ovarian dermoid Diego Roth MD Objective Remarks awake and alert, oriented x 3 anicteric no nuchal rigidity lungs- no rales regular rhythm abdomen- soft, + bowel sounds, nontender, extremities no edema neuro exam- non focal A/P Problem List: (1) Gallstone pancreatitis ICD Code: K85.10 - Biliary acute pancreatitis without necrosis or infection Status: Acute (2) UTI (urinary tract infection) ICD Code: N39.0 - Urinary tract infection, site not specified (3) Hypokalemia ICD Code: E87.6 - Hypokalemia Status: Acute Assessment and Plan 36-year-old female with a history of asthma presented to the ED with abdominal pain for the last 3 weeks. Gallstone pancreatitis with transaminitis Cholecystitis- GB wall thickening on CT with some biliary duct dilation Abdominal/pelvis CT shows multiple gallstones with mild gallbladder wall thickening. Multiple common duct stones with moderate intra-and extrahepatic biliary ductal dilation gallstone pancreatitis -IVF for hydration -N.p.o.. on antibiotics -GI ff - ERCP vs PTC - LFTs and lipase trending down- clincially feeling better GS ff peripherally prn pain meds Hypokalemia,improved IVF with KCL incorporation ff electrolytes UTI suspect E. coli, abnormal UA with positive nitrates and WBCs -Levaquin IV -Urine culture pending History of HAD- in remission Incentive spirometry DVT prophylaxis: SCDs- patient up and ambulating H2 ye for GI prophylaxis d/w patient - explained Problem Qualifiers (1) UTI (urinary tract infection): Qualified Codes: N30.01 - Acute cystitis with hematuria Maia Rea MD September 06, 2017 09:01
--- NOTE | 2017-09-06 10:42 | HHI.GIFU ---
Subjective Remarks Pt resting in bed, friends at bedside. She denies any abd pain, n/v. SHe said she will refuse a PTC and wants second opinion regarding cholecystectomy. (Tanna Huitron) Objective Vitals I&O Vital Signs Date Time Temp Pulse Resp B/P (MAP) Pulse Ox O2 Delivery O2 Flow Rate FiO2 09/06/17 08:00 97.4 83 16 118/58 (78) 97 09/06/17 00:25 99.0 77 20 116/75 (89) 98 09/05/17 20:51 98 21 09/05/17 20:00 99.4 78 20 116/63 (80) 98 09/05/17 16:00 97.6 88 17 112/66 (81) 99 09/05/17 14:30 97.6 82 16 119/65 (83) 96 Room Air 09/05/17 14:15 88 16 123/62 (82) 95 Room Air 09/05/17 14:05 97.9 97 20 128/58 (81) 100 Nasal Cannula 3 09/05/17 12:00 98.7 78 19 119/66 (83) 98 I/O 09/05/17 09/05/17 09/05/17 09/06/17 09/06/17 09/06/17 06:59 14:59 22:59 06:59 14:59 22:59 Intake Total 566 ml 1100 ml 625 ml Output Total 700 ml Balance 566 ml 1100 ml -75 ml Intake Oral 375 ml IV Total 566 ml 100 ml 250 ml Other 1000 ml Output Urine Total 700 ml # Voids 3 1 4 # Bowel Movements 1 0 Laboratory Laboratory Tests Test 09/06/17 05:57 Blood Urea Nitrogen 7 Creatinine 0.68 Random Glucose 127 Total Protein 7.7 Albumin 2.7 Calcium Level 8.6 Alkaline Phosphatase 146 Aspartate Amino Transf (AST/SGOT) 42 Alanine Aminotransferase (ALT/SGPT) 109 Total Bilirubin 0.5 Sodium Level 143 Potassium Level 3.9 Chloride Level 111 Carbon Dioxide Level 23.6 Anion Gap 8 Estimat Glomerular Filtration Rate 99 Lipase 884 Date/Time Source Procedure Growth Status 09/03/17 13:10 Urine Clean Catch Urine Culture - Final 50-100,000 CFU/ML MIXED GRAM POSITIVE... Complete Imaging Last Impressions GI Procedure 09/05/17 0000 Signed Impressions: Service Date/Time: Tuesday, September 05, 2017 12:23 - CONCLUSION: ERCP as above. Drake Claros MD FACR Chest X-Ray 09/03/17 1307 Signed Impressions: Service Date/Time: Sunday, September 03, 2017 13:12 - CONCLUSION: 1. Minimal basilar atelectasis. No effusion or pneumothorax. Randy Kendrick MD Abdomen/Pelvis CT 09/03/17 0000 Signed Impressions: Service Date/Time: Sunday, September 03, 2017 15:06 - CONCLUSION: Multiple gallstones with mild gallbladder wall thickening. Multiple common duct stones with moderate intra-and extrahepatic biliary ductal dilatation. Gallstone pancreatitis. 6.6 cm right ovarian dermoid Diego Roth MD Physical Exam HEENT: PERRL; normocephalic; atraumatic; no jaundice. CHEST: CTA CARDIAC: RRR ABDOMEN: Soft, obese, nontender; no hepatosplenomegaly; bowel sounds are present in all four quadrants. EXTREMITIES: No clubbing, cyanosis, or edema. SKIN: Normal; no rash; no jaundice. COLOR MAKING SUPERVISOR: No focal deficits; alert and oriented times three. (Tanna Huitron) Assessment and Plan Plan Assessment: - Choledocholithiasis Abdominal pain, nausea, vomiting, fevers intermittent x [address] abdomen and pelvis W IV contrast (09/03) --> Multiple gallstones with mild gallbladder wall thickening. Multiple common duct stones with moderate intra-and extrahepatic biliary ductal dilatation. Gallstone pancreatitis. AST-97 ALT-134 Alk phos-169 T bili-0.8 - Biliary pancreatitis- lipase 4164 Pt denies history of pancreatitis, ETOH - Leukocytosis - on Levaquin - Anemia, normocytic 09/06/17 s/p unsuccessful ERCP, PTC was recommended. no GI sx. LFTs trending down. pt will refuse PTC, unsure about cholecystectomy and wants second opinion. LFTs trending down. Plan: diet per GS pt refuses PTC Monitor labs (LFTs, lipase, WBCs) Pt has been seen and examined by myself and Dr. Nichole and myself and This note is on her behalf (Tanna Huitron) Physician Comments leaving ama (Susan Nichole MD) Tanna Huitron September 06, 2017 10:42 Susan Nichole MD September 06, 2017 16:26
[2017-09-06 12:00] VITALS: BP 118/68; PULSE 74; RESP 16; TEMP 97.1; O2SAT 98
--- NOTE | 2017-09-06 14:59 | HHI.PR ---
cc: Pro Edwards MD Subjective Subjective Notes Patient not sure if she wants to stay in the hospital ----GI recommends PTC- Patient states she wants to go home and come back in 2 weeks Objective Vitals/I&O Vital Signs Date Time Temp Pulse Resp B/P (MAP) Pulse Ox O2 Delivery O2 Flow Rate FiO2 09/06/17 12:00 97.1 74 16 118/68 (85) 98 09/05/17 20:51 21 09/05/17 14:30 Room Air 09/05/17 14:05 3 Labs Laboratory Tests Test 09/06/17 05:57 Blood Urea Nitrogen 7 Creatinine 0.68 Random Glucose 127 Total Protein 7.7 Albumin 2.7 Calcium Level 8.6 Alkaline Phosphatase 146 Aspartate Amino Transf (AST/SGOT) 42 Alanine Aminotransferase (ALT/SGPT) 109 Total Bilirubin 0.5 Sodium Level 143 Potassium Level 3.9 Chloride Level 111 Carbon Dioxide Level 23.6 Anion Gap 8 Estimat Glomerular Filtration Rate 99 Lipase 884 Date/Time Source Procedure Growth Status 09/03/17 13:10 Urine Clean Catch Urine Culture - Final 50-100,000 CFU/ML MIXED GRAM POSITIVE... Complete Radiology Last Impressions Chest X-Ray 09/03/17 1307 Signed Impressions: Service Date/Time: Sunday, September 03, 2017 13:12 - CONCLUSION: 1. Minimal basilar atelectasis. No effusion or pneumothorax. Randy Kendrick MD Abdomen/Pelvis CT 09/03/17 0000 Signed Impressions: Service Date/Time: Sunday, September 03, 2017 15:06 - CONCLUSION: Multiple gallstones with mild gallbladder wall thickening. Multiple common duct stones with moderate intra-and extrahepatic biliary ductal dilatation. Gallstone pancreatitis. 6.6 cm right ovarian dermoid Diego Roth MD Cardiovascular: Regular Lungs: Clear Abdomen: Non-distended, Non-tender Extremities: No edema A/P Problem List: (1) Common bile duct stone ICD Codes: K80.50 - Calculus of bile duct without cholangitis or cholecystitis without obstruction Status: Acute (2) S/P ERCP ICD Codes: Z98.890 - Other specified postprocedural states Status: Acute (3) Hypokalemia ICD Codes: E87.6 - Hypokalemia Status: Acute (4) Gallstone pancreatitis ICD Codes: K85.10 - Biliary acute pancreatitis without necrosis or infection Status: Acute (5) UTI (urinary tract infection) ICD Codes: N39.0 - Urinary tract infection, site not specified Assessment and Plan 36 year old female with gallstone pancreatitis -S/p ERCP--unable to cannulate-- GI recommends PTC -Can discuss timing of lap nico after PTC -Patient not sure if she wants to proceed with anymore procedures at this time -Will continue to follow for timing of lap nico if patient decides to stay Problem Qualifiers (1) UTI (urinary tract infection): Qualified Codes: N30.01 - Acute cystitis with hematuria Margot Webb/First Leslie OQUENDO September 06, 2017 14:59
== END 2017-09-06 16:22 | disposition left against medical advice (07) | DRG 439 ==
LOC: PHED 12:47 → PHEDA 16:40 → N07B 21:04
PROVIDERS: ADMIT Internal Medicine; ATTEND Internal Medicine
PROC: 0FJD8ZZ Inspection of Pancreatic Duct, Via Natural or Artificial Opening Endoscopic (ICD-10-PCS; principal; 2017-09-05 12:45)
DX: K85.10 Biliary acute pancreatitis without necrosis or infection (principal); N39.0 Urinary tract infection, site not specified; D62 Acute posthemorrhagic anemia; E66.01 Morbid (severe) obesity due to excess calories; K80.50 Calculus of bile duct without cholangitis or cholecystitis without obstruction; E87.6 Hypokalemia; B96.20 Unspecified Escherichia coli [E. coli] as the cause of diseases classified elsewhere; Z68.35 Body mass index [BMI] 35.0-35.9, adult
CPT/HCPCS: 71045; 74177; 74330; 80053; 81001; 83690; 84703; 85025; 85610; 87086; 94664; 96361; 96365; 96366; 96368; 96375; C1769; J0330; J1100; J1170; J1650; J1956; J2250; J2270; J2405; J2710; J3010; J3480; J7030; J7042; Q9967